=== PATIENT | male | born 2000 | race Caucasian/White ===

== ENCOUNTER → 2022-04-30 | Outpatient (CLI) | payer BC ==
--- NOTE | 2022-04-30 15:35 | US ---
EXAMINATION TYPE: US thyroid st tissue head/neck DATE OF EXAM: 04/30/2022 COMPARISON: NONE CLINICAL HISTORY: R59.0 ENLARGED LYMPH NODES. Patient states having covid x 2 months ago. Feels palp able left lateral neck along jaw. Area of concern scanned at left neck. Two prominent lymph nodes seen with short axis measured. 1: Short axis = 0.7 cm and cortex= 4.2 mm 2: Short axis= 0.8 cm and cortex= 3.3 mm Contralateral image taken with prominent lymph node seen, short axis= 0.8 cm and cortex 5.0 mm. IMPRESSION: Mildly prominent lymph nodes are likely reactive in nature. Correlate clinically.
[2022-04-30 19:03] LABS: Basophils # (A) 0.03 X 10*3/uL (0.00-0.10); Basophils % (A) 0.9 %; Eosinophils # (A) 0.06 X 10*3/uL (0.04-0.35); Eosinophils % (A) 1.8 %; HCT 47.8 % (39.6-50.0); Immature Grans, Automated 0.3 %; Lymphocytes # (A) 1.09 X 10*3/uL (0.90-5.00); Lymphocytes % (A) 33.5 %; MCH 29.5 pg (27.0-32.0); MCHC 33.5 g/dL (32.0-37.0); Mean Platelet Volume 10.5 fL (9.5-12.2); Monocytes # (A) 0.21 X 10*3/uL (0.20-1.00); Monocytes % (A) 6.5 %; NRBC Per 100 WBC 0 /100 WBCS (0.0-0.0); Neutrophils # (A) 1.85 X 10*3/uL (1.80-7.70); Platelet Count 182 X 10*3/uL (140-440); RBC 5.43 X 10*6/uL (4.40-5.60); RDW 11.7 % (11.5-14.5); WBC 3.25 X 10*3/uL (4.50-10.00)
== END | disposition home or self-care (01) ==
LOC: RADUSWWP 13:32
PROVIDERS: ATTEND Family Medicine
DX: R59.0 Localized enlarged lymph nodes (principal)
CPT/HCPCS: 36415; 76536; 85025